=== PATIENT | male | born 1940 | race Hispanic/Latino ===

== ENCOUNTER → 2023-01-07 | Outpatient (CLI) | payer OTHER | END | disposition home or self-care (01) | LOC: RAH 10:00 | PROVIDERS: ATTEND Internal Medicine Pulmonary Disease | DX: I37.1 Nonrheumatic pulmonary valve insufficiency (principal); G47.37 Central sleep apnea in conditions classified elsewhere; I51.89 Other ill-defined heart diseases; G47.33 Obstructive sleep apnea (adult) (pediatric) | CPT/HCPCS: 93306 ==